=== PATIENT | female | born 1945 | race Caucasian/White ===

== ENCOUNTER 2024-10-20 10:28 | Outpatient (REF) | payer MEDICARE, BC, SELFPAY ==
[2024-10-20 18:50] LABS: MANUAL DIFF FLAG NO
[2024-10-20 19:07] LABS: Basophils Absolute Auto 0.1 X10*3/uL (0.0-0.2); Basophils Percent Auto 0.7 % (0-2); Eosinophils Absolute Auto 0.1 X10*3/uL (0.0-0.4); Eosinophils Percent Auto 1.2 % (0-4); Hematocrit 40.5 % (37.0-47.0); Hemoglobin 13.1 g/dl (12.0-16.0); Imm Gran Abs Auto 0.03 X10*3/uL (0.00-0.03); Imm Gran Pct Auto 0.3 % (0.0-0.4); Lymphocytes Absolute Auto 1.9 X10*3/uL (1.2-4.9); Lymphocytes Percent Auto 19.6 % (20-40); Mean Corpuscular HGB Conc 32.3 g/dl (31.0-35.0); Mean Corpuscular Hemoglobin 29.9 pg (27.0-33.0); Mean Corpuscular Volume 92.5 fL (80.0-98.0); Mean Platelet Volume 10.7 fL (9.4-12.3); Monocytes Absolute Auto 0.6 X10*3/uL (0.1-1.2); Monocytes Percent Auto 6.6 % (2-11); Neutrophils Absolute Auto 6.8 x10*3/uL (2.0-8.3); Neutrophils Percent Auto 71.6 % (45-73); Platelet Count 209 X10*3/uL (160-400); Red Blood Count 4.38 X10*6/uL (4.20-5.50); Red Cell Distribution Width 13.3 % (11.0-16.0); White Blood Count 9.5 X10*3/uL (4.8-10.8)
[2024-10-20 19:18] LABS: Alanine Aminotransferase 13 U/L (0-31); Aspartate Amino Transferase 19 U/L (5-31); C Reactive Protein 0.74 mg/dL (< or = 0.50); Estimated Glomerular Filt Rate > 60
[2024-10-20 19:59] LABS: Erythrocyte Sedimentation Rate 23 MM/HR (0-20)
== END 2024-10-20 10:29 | disposition home or self-care (01) ==
LOC: HO.HKASLDS 10:28
PROVIDERS: Visit Provider Internal Medicine Rheumatology
DX: M79.641 Pain in right hand (principal); M79.642 Pain in left hand; M25.50 Pain in unspecified joint; Z79.899 Other long term (current) drug therapy; R29.898 Other symptoms and signs involving the musculoskeletal system; Z86.16 Personal history of COVID-19; Z86.19 Personal history of other infectious and parasitic diseases
CPT/HCPCS: 36415; 82565; 84450; 84460; 85025; 85652; 86140; 99202

== ENCOUNTER 2024-10-20 10:28 | Outpatient (AMB) | payer MEDICARE, BC, SELFPAY ==
--- NOTE | 2024-10-20 10:32 | MHC.OFFVIS ---
Vital Signs 10/20/24 10:33 Height 5 ft 2.76 in Weight 142 lb 13.753 oz BMI 25.5 BP 150/80 H Blood Pressure Location Rt brachial Position Sitting Pulse 68 Pulse Source Pulse Oximeter Pulse Oximetry (%) 96 Oxygen Delivery Method Room Air Intake Visit Reasons: Arthritis/SELF REF OK per MD Intake Note: Pt presents today with arthritis. Allergies doxycycline Allergy (Intermediate, Verified 10/20/24 10:39) Stomach Upset Sulfa (Sulfonamide Antibiotics) Allergy (Intermediate, Verified 10/20/24 10:39) Hives duloxetine Allergy (Mild, Verified 10/20/24 10:39) Stomach Upset codiene Allergy (Intermediate, Uncoded 10/20/24 10:39) Hallucinations HPI HPI Arthritis/SELF REF OK per MD: Details: She had covid-19 04/2024 presented with vomiting and increase myalgias and arthralgias. Then she was dx with lyme 06/2024 with positive IgM and IgG. She only had doxyclycline 07/02/07/10 d/c due to vomiting. She was then started on amoxicillin until 07/19/2024. Seasonal every winter she has increase joint pain all over, especially in hands. She uses tylenol PRN. She has not use Tylenol in 2 weeks. She has increase pain everywhere at night more then during the day. She denies having difficulty getting about of bed. Denies having difficulty getting up from seated position. She denies fevers, Raynaud's phenomena, dyspnea, chest pain, pleurisy, oral ulcers, urinary symptoms, headaches, jaw pain, vision loss. After COVID-19 her joint pain has worsened. MS few hours. Fingers are swollen. She has a new nodule on right 3rd PIP She has had seasonal joint pain for 25 years. She did not have joint pain when she was living in [place]. Trigger finger 3rd surgery 08/04/2024 Dr. Raman. Bilateral shoulder cuff tears. Right meniscus tear repair and right knee hyalaronic acid 6 years ago. Hysterectomy age 32 due to fibroids and possible prolapsed uterus. Hx HLD, hypothyroidsm, HTN and lichen sclerosis. Mother had rheumatoid arthritis. Occasional glass of wine. Non smoker and no recreational drug use. 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 [employer] Medical History (Updated 10/20/24 @ 12:55 by Obdulio Mott MD) Trigger finger of right hand Review of Systems Const All systems reviewed & are unremarkable except as noted in HPI and below Physical Exam Vital Signs: Last Vital Signs Pulse 68 10/20/24 10:33 BP 150/80 H 10/20/24 10:33 Pulse Ox 96 10/20/24 10:33 Oxygen Delivery Method Room Air 10/20/24 10:33 BMI result Body Mass Index 25.5 Const Other: General: Comfortable CVS: RRR Respiratory: clear to auscultation bilaterally. Good respiratory effort Skin: No lesions seen MSK: Tender right 3rd PIP with ulnar nodule present. She has no synovitis of any joint. 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 Normal range of motion of upper extremities. Normal range of motion of lower extremities. 5/5 power upper extremities. Left leg hip flexor 3/5 power. Rest of lower extremity is 5/5 power. She is able to get out of seated position to standing position without using arms on armrest. Assessment & Plan Assessment & Plan (1) Bilateral hand pain: Comment: Due to clinical osteoarthritis. She has had history of left 3rd trigger finger with complications from surgery, which occurred 08/04/2024. She will be following up with hand surgeon for possible revision of trigger finger release. We discussed natural course and management of osteoarthritis. Code(s): M79.641 - Pain in right hand; M79.642 - Pain in left hand Category: Medical Plan: Bilateral hand x-rays ordered Try diclofenac gel 1% applied to affected area every 4-6 hours as needed Take Tylenol 500 mg 1-2 tablets q.h.s. Baseline labs ordered Return to clinic in 1-2 months (2) Multiple joint pain: Comment: Chronic joint pain for at least 25 years described as seasonal exacerbated with cold weather and after COVID-19 04/2024. She continues to have generalized joint pain worse at night and in her hands. She does not have synovitis to suggest inflammatory arthritis or symptoms/exam findings to suggest PMR or any other connective tissue disease. She has clinical osteoarthritis. Incidentally she has left leg weakness on exam of unclear etiology. I recommend conservative management with physical therapy to improve left leg weakness and upper extremity strengthening. Code(s): M25.50 - Pain in unspecified joint Category: Medical Plan: PT ordered. Patient prefers to go to physical therapy near her home. She will take Tylenol 500 mg 1-2 tablets q.h.s. Baseline labs ordered Return to clinic in 1-2 months (3) Post-COVID chronic joint pain: Code(s): M25.50 - Pain in unspecified joint; U09.9 - Post COVID-19 condition, unspecified; G89.29 - Other chronic pain Category: Medical Plan: See above (4) Left leg weakness: Code(s): R29.898 - Other symptoms and signs involving the musculoskeletal system Category: Medical Plan: See above Orders: Orders XR hand RT min 3V Today M79.641 - Pain in right hand, M79.642 - Pain in left hand Alanine Aminotransferase Today M79.641 - Pain in right hand, M79.642 - Pain in left hand Creatinine Today M79.641 - Pain in right hand, M79.642 - Pain in left hand Complete Blood Count Auto Diff Today M25.50 - Pain in unspecified joint Erythrocyte Sedimentation Rate Today Z79.899 - 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 PT Evaluation and Treatment Today G89.29 - Other chronic pain, M25.50 - Pain in unspecified joint, R29.898 - Other symptoms and signs involving the musculoskeletal system, U09.9 - Post COVID-19 condition, unspecified XR hand LT min 3V Today M79.641 - Pain in right hand, M79.642 - Pain in left hand Aspartate Amino Transferase Today M79.641 - Pain in right hand, M79.642 - Pain in left hand C Reactive Protein Today M25.50 - Pain in unspecified joint Coding Level of Care Code New Pt Level 4 (69039) Complex EM visit Add On G2211 Diagnoses Bilateral hand pain M79.641; M79.642 Multiple joint pain M25.50 Post-COVID chronic joint pain M25.50; U09.9; G89.29 Left leg weakness R29.898
[2024-10-20 10:33] VITALS: BP 150/80; PULSE 68; O2SAT 96; BMI 25.5
--- OUTSIDE RECORDS SUMMARY | 2024-10-20 12:13 | XMS_ITS | Clinical Summary ---
Author Organization [facility] it Address [address] [place] [address] Care Team Providers Care Card Tender Name Role Phone Jayshree Randhawa MD Primary Care Provider Medications Premarin vaginal cream PLACE 0.5G VAGINALLY 3 TIMES A WEEK. APPLY A PEA SIZED AMOUNT TO THE VAGINAL OPENING WITH YOUR FINGER SATURDAY, SATURDAY, AND SATURDAY 30 g 1 Active Surgical History Surgery Date Site/Laterality Comments SHOULDER SURGERY Bilateral PROCEDURE: HISTORICAL SHOULDER SURGERY KNEE SURGERY Right PROCEDURE: HISTORICAL KNEE SURGERY Medical History Medical History Date Comments Hypothyroidism DX:Hypothyroidis m Essential (primary) hypertension DX:Essential (primary) hypertension Mixed hyperlipidemia DX:Mixed hy perlipidemia Rosacea DX:Rosacea Family History Medical History Relation Name Comments Breast cancer Neg Hx Colon cancer Neg Hx Ovarian cancer Neg Hx Pancreatic cancer Neg Hx Prostate cancer Neg Hx Uterine cancer Neg Hx Social History Tobacco Use Types Packs/Day Years Used Date Smoking Tobacco: Never Smokeless Tobacco: Never Alcohol Use Standard Drinks/Week Comments Not Asked 0 (1 standard drink = 0.6 oz pur e alcohol) Comments Unknown Sex and Gender Information Value Date Recorded Sex Assigned at Not on file Legal Sex Female 11:40 AM EDT Gender Identity Not on file Sexual Orientation Not on file Obstetrics History Last Filed Vital Signs Vital Sign Reading Time Taken Comments Blood Pressure 130/80 05/19/2024 9:47 AM EDT Pulse 65 05/19/2024 9:47 AM EDT Temperature - - Respiratory Rate - - Oxygen Saturation - - Inhaled Oxygen Concentration - - Weight 63.5 kg (140 lb) 05/19/2024 9:47 AM EDT Height 152.4 cm (5') 2024 9:26 AM EDT Body Mass Index 27.34 2024 9:26 AM EDT Plan of Treatment Upcoming Encounters Date Type Department Care Team (Late st Contact Info) Description 10/26/2024 1:15 PM EDT Office Visit Obstetrics and Gynecology - [address] [phone] Mary Adames MD [address] [place], [place] Health Maintenance Due Date Last Done Comments DTaP,Tdap,and Td Vaccines (1 - Tdap) 1966 Pneumococcal Vaccine: 50+ Ye ars (1 of 1 - PCV) 1997 Zoster Vaccines (1 of 2) 1997 RSV Immunization Patients 60 + Years Old (1 - 1-dose 75+ series) 2022 COVID-19 Vaccine ( - 2023-2 5 season) 2024 Influenza Vaccine (#1) 2024 Depression Screening 05/19/2024 Falls Risk Assessment 05/19/2024 Hepatitis C Screening 05/19/2024 Medicare Annual Wellness Visit 05/19/2024 Osteoporosis Screening (Bone Density Screening) 05/19/2024 Social Influencers of Health Screening 05/19/2024 HIB Vaccines Aged Out No longer eligi ble based on patient's age to complete this topic HPV Vaccines Aged Out No longer eligi ble based on patient's age to complete this topic Hepatitis A Vaccines Aged Out No long er eligible based on patient's age to complete this topic Hepatitis B Vaccines Aged Out No long er eligible based on patient's age to complete this topic IPV Vaccines Aged Out No longer eligi ble based on patient's age to complete this topic MMR Vaccines Aged Out No longer eligi ble based on patient's age to complete this topic Meningococcal ACWY Vaccine Aged Out N o longer eligible based on patient's age to complete this topic Meningococcal B Vacine Aged Out No lo nger eligible based on patient's age to complete this topic RSV Immunization Patients Un christiano 20 months Aged Out No longer eligible b ased on patient's age to complete this topic Varicella Vaccines Aged Out No longer eligible based on patient's age to complete this topic Insurance MEDICARE [facility] Care Teams Card Tender Relationship Specialty Start Date End Date Jayshree Randhawa MD [address] [place] [address] PCP - General 01/14/24
--- OUTSIDE RECORDS SUMMARY | 2024-10-20 12:13 | XMS_ITS | Data Portability ---
Author Organization [place] - [facility], [facility] Address [address] [place] [address] Care Team Providers Care Painter Maintenance Name Role Phone CHAD CARROLL Primary Care Provider [phone] Assessment Encounter Date Assessment Date Assessment LastModified by Organization Details LastModified Time 07/09/2024 07/09/2024 I am seeing the patient today under the supervision of Dr. astorga Who was available but who did not see the patient. HPI: Patient presents today rmf locking and catching. The past couple weeks she been having increasing locking catching of the rmf . Tenderness over her A1 bhargavi minimal swelling. Worse at night. No numbness and tingling. Past family, medical, social history and review of systems has been reviewed, updated and is located in the patient? s chart. Examination:r Hand exam: no warmth, effusion, erythema, ecchymosis, full ROM of the digits, good FDS/FDPS function, triggering of the rmf , good cap refill, tender over the A1 bhargavi, digits are neurovascularly intact, 5/5 block sawyer strength. X-rays reviewed at [facility] Impression:rmf trigger Plan:Patient was to proceed with surgical management at this point given her failure of conservative management will be booked with Dr. Lamine oritz for right hand trigger finger release of the right middle finger.I discussed the risks benefits and possible complications of the surgical procedure with the patient. The patient agrees and understands. Patient will follow-up per the surgeon's postoperative protocol which we discussed. All questions were answered regarding the procedure Nothing to eat or drink past midnight. They will contact us with any questions or concerns prior to surgery. Patient is happy with outcome today. [employer] speech recognition oracle soa architect software was used to create portions of this document. An attempt at proofreading has been made to minimize errors. Please call for corrections. [email or web address] Not available 07/09/2024 12:00:20 Plan of Treatment Reminders Order Date Submit Date Provider Last Modified By Organization Details Last Modified Time Details Appointments RECHECK 15 2024 01:30P Liliana Raman MD Not available Not available Not available Lab None recorded. Referral occupatio nal therapist referral - Diagnosis :FLEXOR TENOSYNOV ECTOMY RIGHT MIDDLE FINGER SX 08/04/24C ustom molded orthosis: noneTreat ment: CONTINUE CURRENT CARE OT 2024 025 [email or web address] Not available 09/14/2024 11:47:15 Procedures None recorded. Surgeries None recorded. Imaging None recorded. Medication Orders None recorded. Patient TargetsNo targets recorded. Patient InstructionsNo instructions recorded. Reason for Referral Occupational Therapist Refer ral for Surgical follow-up Diagnosis:FLEXOR TENOSYNOVECTOMY RIGHT MIDDLE FINGER SX 08/04/24Custom molded orthosis: noneTreatment: CONTINUE CURRENT CARE OT Referring Physician: Naun Raman, Orthopedic Surgery, Encounter Date: 09/11/2024 Problems Name Problem SNOMED Code Status Onset Date Resolution Date Notes Provider Name and Address Organization Details Recorded Time No complaint s 116049138 Active Status: 'I'; Not Available [facility] 4 09:16:49 Pain in right hand 405929764336 109 Active 2023 Jordi Gonzales PA-C [address] [place] [address] [address], [place], [address] , [facility] 4 12:56:06 Pain of right knee joint 155243636297 100 Active 2016 Problem Code: M25.561; Problem Code Type: ICD-10; Status: 'A'; Not Available [facility] 4 11:27:35 Full thickness rotator cuff tear 476439754 Active 2015 Problem Code: M75.121; Problem Code Type: ICD-10; Status: 'A'; Not Available [facility] 4 11:27:35 Impingeme nt syndrome of left shoulder region 671849648833 104 Active 2018 Problem Code: M75.42; Problem Code Type: ICD-10; Status: 'A'; Not Available [facility] 4 11:27:35 Impingeme nt syndrome of right shoulder region 021884867210 102 Active 2018 Problem Code: M75.41; Problem Code Type: ICD-10; Status: 'A'; Not Available [facility] 4 11:27:35 Degenerat ion of cervical intervert ebral disc 81538236 Active 2018 Problem Code: M50.322; Problem Code Type: ICD-10; Status: 'A'; Not Available [facility] 4 11:27:35 Instabili ty of right shoulder joint 188994505 Active 2018 Problem Code: M25.311; Problem Code Type: ICD-10; Status: 'A'; Not Available [facility] 4 11:27:35 Idiopathi c osteoarth ritis 408276898 Active 2018 Problem Code: M19.011; Problem Code Type: ICD-10; Status: 'A'; Not Available [facility] 4 11:27:36 Derangeme nt of medial meniscus of right knee 771241772467 106 Active 2017 Problem Code: M23.231; Problem Code Type: ICD-10; Status: 'A'; Not Available [facility] 4 11:27:36 Trigger finger of right hand 077434855846 54883 Active 2023 Solis Paniagua PA-C [email or web address], [place], [address] , [facility] 4 07:52:12 Problem Notes None recorded. Procedures Surgical History Date Name Laterality Status Provider Name and Address Organization Details Recorded Time 4 JZTrigger Finger Injection completed Solis Paniagua PA-C [email or web address], [place], [address], [facility] 11/13/2023 07:52:04 Imaging Results None recorded. Procedure Notes None recorded. Medical Equipment None Reported. Allergies Allergen ID Allergen Name Allergen Category Reaction Reaction Severity Criticality Documentation Date Start Date Code Code System Note Provider Name and Address Organization Details Recorded Time 92422 Substance with sulfonami de structure and antibacte rial mechanism of action (substanc e) medicatio n Not available Not available Not available 10/07/20232015 64410 8003 SNOMED Aller gyRea ction : 'Skin React ion, Nause a/Vom iting /Diar romel' ; Not Available [facility] 4 11:53:42 51593 codeine medicatio n hallucina tions Not available Not available 10/07/20232015 2670 RxNorm Aller gyNam e: 'Code ine and Relat ed'; Not Available [facility] 11:53:43 Medications Name Sig Start Date Stop Date Status Note LastModified by Organization Details LastModified Time amoxicillin 500 mg capsule TAKE 1 CAPSULE BY MOUTH THREE TIMES DAILY FOR 7 DAYS active Not Available Not Available No t Available fluconazole 150 mg tablet TAKE 1 TABLET BY MOUTH TODAY. REPEAT IN 3 DAYS IF SYMPTOMS PERSIST active Not Available Not Available No t Available sucralfate 1 gram tablet TAKE 1 TABLET BY MOUTH THREE TIMES DAILY BEFORE MEALS AND AT BEDTIME active Not Available Not Available No t Available ondansetron HCl 4 mg tablet TAKE 1 TABLET BY MOUTH EVERY 8 HOURS NEEDED FOR FOR NAUSEA AND VOMITING active Not Available Not Available No t Available famotidine 20 mg tablet TAKE 1 TABLET BY MOUTH TWICE DAILY X 2 WEEKS. COMPLETE HOURS-PYL MO TEST ONCE DONE WITH THIS COURSE OF TREATMENT . active Not Available Not Available No t Available simvastatin 5 mg tablet TAKE 1 TABLET AT BEDTIME active Not Available Not Available No t Available pantoprazol e 40 mg tablet,hudson yed release TAKE 1 TABLET BY MOUTH DAILY. DO NOT START UNTIL HOURS-PYL MO TEST IS COMPLETED active Not Available Not Available No t Available tacrolimus 0.1 % topical ointment active Not Available Not Available Not Available neomycin-po lymyxin-dex ameth 3.5 mg/mL-10,00 0 unit/mL-0.1 % eye drops INSTILL 1 DROP INTO RIGHT EYE THREE TIMES DAILY FOR 7-10 DAYS 07/09 completed Not Available Not Available Not Available Synthroid 50 mcg tablet TAKE 1 TABLET DAILY active Not Available Not Available No t Available mometasone 0.1 % topical ointment APPLY THIN LAYER TOPICALLY TO THE AFFECTED AREA EVERY NIGHT 07/09 completed Not Available Not Available Not Available clobetasol 0.05 % topical ointment active Not Available Not Available Not Available ondansetron 4 mg disintegrat ing tablet DISSOLVE 1 TABLET ON THE TONGUE EVERY 8 HOURS NEEDED FOR NAUSEA OR VOMITING active Not Available Not Available No t Available losartan 100 mg tablet TAKE 1 TABLET DAILY active Not Available Not Available No t Available doxycycline hyclate 100 mg tablet TAKE 1 TABLET BY MOUTH TWICE DAILY FOR 10 DAYS active Not Available Not Available No t Available bacitracin- polymyxin B 500 unit-10,000 unit/gram eye ointment APPLY TO RIGHT LOWER EYELID MARGIN THREE TIMES DAILY active Not Available Not Available No t Available oxycodone 5 mg tablet TAKE 1 TABLET BY MOUTH EVERY 4 HOURS DIRECTED active Not Available Not Available No t Available Premarin 0.625 mg/gram vaginal cream PLACE 0.5G VAGINALLY 3 TIMES A WEEK. APPLY A PEA SIZED AMOUNT TO THE VAGINAL OPENING WITH YOUR FINGER SATURDAY, SATURDAY , AND SATURDAY active Not Available Not Available No t Available nitrofurant oin monohydrate /macrocryst als 100 mg capsule TAKE 1 CAPSULE BY MOUTH TWICE DAILY FOR 7 DAYS active Not Available Not Available No t Available Gel-One R KNEE INJ ONCE 11/12 completed Statu s: 'Curr ent'; Not Available Not Available Not Available BinaxNOW COVID-19 Ag Self Test kit TEST DIRECTED TODAY active Not Available Not Available No t Available Paxlovid 300 mg (150 mg x 2)-100 mg tablets in a dose pack TK 2 NIRMATREL VIR TS AND 1 RITONAVIR T TOGETHER PO TWICE DAILY FOR 5 DAYS. TAKE WITH OR WITHOUT FOOD. active Not Available Not Available No t Available Vitals Date Recorded Body height Body mass index (BMI) Body weight Provider Name and Address Organization Details Last Updated DateTime 07/09/2024 152.4 cm 27.1 kg/m2 61669.34 g John Adler [facility] 07/09/2024 10:44:58 Date Recorded Body height Body mass index (BMI) Body weight Provider Name and Address Organization Details Last Updated DateTime 09/11/2024 152.4 cm 27.1 kg/m2 10379.34 g KANG GUTHRIE [facility] 09/11/2024 13:35:01 Date Recorded Body height Body mass index (BMI) Body weight Provider Name and Address Organization Details Last Updated DateTime 10/14/2024 152.4 cm 27.1 kg/m2 85682.34 g KANG GUTHRIE [place] [facility] 10/14/2024 14:22:04 Social History None recorded. Functional Status None recorded. Mental Status None recorded. Family History Nothing Reported. Medical History Condition Response Allergies/Hayfever N Coronary Artery Disease N Anxiety/Depression N Breathing or lung disorders N Emphysema N Nerve Disorders N Thyroid Problems Y COPD N Pacemaker N Anemia N Kidney/Bladder Problems N Vascular Disease N Heart Trouble N Heart Attack ([place]) N Gastrointestinal Disease N Cholesterol Y Diabetes N Autoimmune disease N Bleeding Disorder N Inflammatory Joint disease N Orthotics N Arthritis N Seizures/Epilepsy N Blood Clot N AIDS/HIV N Congestive Heart Failure (CHF) N Acid Reflux (GERD) N Cancer N Stroke N Asthma N Circulation Problems N Peripheral Vascular Disease N Sleep Apnea N Hepatitis N Heart Disease N Rheumatoid Arthritis N Arrhythmia N Pulmonary Embolism N Headaches N Fibromyalgia N Hypertension Y Osteoporosis N Gynecological HistoryNo gynecological history recorded. Obstetrics History GPAL:G 0 P 0 0 0 0 Past Encounters Encounter ID Performer Location Encounter Start Date Encounter Closed Date Diagnosis/Indication Diagnosis SNOMED-CT Code Diagnosis ICD10 Code Diagnosis Note [id number] Solis Paniagua [place] [address] 11/13/2023 07:35:53 11/13/2023 07:57:56 Trigger finger of right hand [id number] 3201236 M65.30 [id number] JORGE Yang [address] [place] [address] 07/09/2024 10:27:59 08/06/2024 09:20:15 Trigger finger of right hand 8418894121 5931146 M65.30 [id number] MD ROCK Burnett [address] [place] [address] 08/11/2024 15:12:04 08/11/2024 15:34:19 Postoperative visit [id number] Z48.89 [id number] Maryan Wallace OTR/L,CHT [place] Man [address] [place] [address] 08/17/2024 14:21:44 08/19/2024 11:46:38 Triggering of digit 200923401 M65.331 This visit was completed today under the supervisio n of Dr. Raman. The postoperat flo dressing is removed. The surgical wound is inspected and found to be clean and dry. The edges of the incision are approximat ed with intact sutures. Patient has intact neurovascu lar structures with only slight tenderness at the incision. No surroundin g erythema, wound drainage, warmth or signs of infection. The patient states no pain when palpating around the surgical site and the surroundin g structures . Postoperative visit [id number] Z48.89 Sutures are removed today without complicati on. Per the surgeon , since there are no wound care complicati ons or concerns . The patient was instructed to contact the office if there should arise any concerns with the surgical site or if there is not sufficient functional recovery. All questions, with regards to return to functional activities , are answered prior to leaving the office today. This office visit was complete at 15 minutes. [id number] MD ROCK Burnett [place] [place] [address] 09/11/2024 13:24:53 10/01/2024 10:30:33 Surgical follow-up [id number] Z48.89 Flexor ten osynovitis of finger 364726869 M65.826 [id number] MD ROCK Burnett [place] [place] [address] 10/14/2024 14:12:54 10/14/2024 16:53:20 Disorder of tendon 02474115 M67.80 Health Concerns Section Related Observation LastModified by Organization Detai ls LastModified Time None Recorded Concern Status LastModified by Organization Details LastModified Time None Recorded Advance Directives Directive None Recorded Payers Encounter Date Sequence Insurance Name Policy Number Policy Curiel Covered Member ID Curiel Member ID Guarantor Name 07/09/2024 1 [place] [facility] Berta Rowley [place] [id number] Berta Rowley [place]o 07/09/2024 2 [place] [employer] - [employer] Brian Conn [place] [id number] Berta L [place]o 08/11/2024 1 [place] [facility] Berta L [place]o [id number] Berta L [place]o 08/11/2024 2 [facility] Brian Conn [place] [id number] Berta L [place] 08/17/2024 1 [place] [facility] Berta L [place]o [id number] 3 Berta L [place]o 08/17/2024 2 [place] [employer] Brian Conn [place] [id number] Berta Rowley [place] 09/11/2024 1 [place] [facility] Berta L [place]o [id number] 3 Berta L [place]o 09/11/2024 2 [place] [employer] Brian Conn Ov[place]o [id number] Berta L [place] 10/14/2024 1 [place] [facility] Berta L [place]o [id number] Berta L [place]o 10/14/2024 2 [place]: [facility] - [facility] [employer] Brian Conn Ov[place]o [id number] Berta L [place] Notes Date Note Type Note Provider Name and Address Organization Details Recorded Time 08/17/2024 text/html This is a 79-yea r-old woman who required an extensive dissection of the right middle finger flexor tenosynovectomy procedure with Dr. Raman on 08/04/2024. She began a course of hand therapy at 1 week postop with Danuta bryson [facility]. She presents to the office today at 2 weeks postop for a suture removal. She will continue with her hand therapy protocol and meet with the surgeon at 6 weeks postop. Maryan Wallace, OTR/L,CHT [address] [facility] [address], [place], [address], [facility] 08/17/2024 14:47:07 09/11/2024 text/html Diagnosis: Statu s post flexor tenosynovectomy right middle finger with excision slip FDS tendon The patient presents at our request. She reports improvement but very slow going in occupational therapy. Past family, medical, social history and review of systems has been reviewed, updated and is located in the patient? s chart. Examination: Healthy appearing patient in no apparent distress. Alert and oriented. She has limited active IP motion of the right middle finger without blocking of the joints. No atrophy in either upper extremity. Brisk capillary refill in all digits Plan: The patient and I discussed her situation at length. She will continue to work aggressively in therapy to maximize her middle finger flexion. She will follow-up with me in 6 weeks. Naun Raman MD [address], [place], [address], [facility] 09/11/2024 14:09:48 10/14/2024 text/html Diagnosis: Statu s post removal of 1 slip FDS tendon right middle finger The patient returns at our request. She has seen no improvement in her finger motion. Past family, medical, social history and review of systems has been reviewed, updated and is located in the patient? s chart. Examination: Healthy appearing patient in no apparent distress. Alert and oriented. She continues to demonstrate flexion at the PIP joint but no DIP motion without blocking. No atrophy in either upper extremity. Brisk capillary refill in all digits Plan: The patient and I discussed her situation at length. I am disappointed by her results. We discussed surgical intervention which would involve a Louise lysis of her flexor tendons and very likely removal of the other slip of the FDS tendon to enhance FDP function. We agreed that we would discuss this further in 3 months with the hopes that she will see some improvements without surgery. She will follow-up with me as recommended. Naun Raman MD [address], [place], [address], [facility] 10/14/2024 16:53:18 OBGyn Episode No OBEpisode recorded.
--- OUTSIDE RECORDS SUMMARY | 2024-10-20 12:14 | XMS_ITS | Continuity of Care Document ---
Author Organization [facility] Address [address] [place] [address]- Care Team Providers Care Manager Of Data Name Role Phone Edis MOISE, Jayshree Ford Primary Care Physician [phone] [id number] Date(s): 08/28/24 - 09/27/24 [facility] [address] [place] [id number]- Encounter Type: Triage Allergies, Adverse Reactions, Alerts Substance Criticality Severity Reaction Reaction Severity Status codeine hallucinations Activ e sulfa drugs hives Active Immunizations Given and Recorded Vaccine Date Status Refusal Reason SARS-CoV-2(COVID-19)mRNA-LNP vac([id number]) 05/06/23 Recorded RSV vaccine, preF A-preF B, recombinant 04/26/23 R ecorded influenza virus vaccine, inactivated 04/26/23 [place] rded influenza virus vaccine, inactivated 04/20/22 Israel rded influenza virus vaccine, inactivated 04/12/21 [place] rded influenza virus vaccine, inactivated 04/08/19 [place] rded influenza virus vaccine, inactivated 04/02/18 [place] rded influenza virus vaccine, inactivated 04/01/17 [place] rded influenza virus vaccine, inactivated 04/11/16 [place] rded [id number] 12y+ bivalent booster vax 07/25/22 Recorded tetanus/diphtheria/pertussis, acel(Tdap) 03/02/22 Given SARS-CoV-2 mRNA ([id number]) vax 11/03/21 Recorded SARS-CoV-2 (COVID-19) mRNA BNT-162b2 vac 06/01/21 Recorded SARS-CoV-2 (COVID-19) mRNA BNT-162b2 vac 11/15/20 Recorded SARS-CoV-2 (COVID-19) mRNA BNT-162b2 vac 10/25/20 Recorded Influenza Virus Vaccine (oldterm) 04/22/20 Recorde d Influenza Virus Vaccine (oldterm) 04/15/15 Recorde d zoster vaccine, inactivated 07/02/18 Recorded zoster vaccine, inactivated 04/02/18 Recorded zoster vaccine, inactivated 08/23/08 Recorded zoster vaccine, inactivated 08/23/08 Recorded pneumococcal 13-valent vaccine 03/09/15 Recorded pneumococcal 23-valent vaccine 08/13/12 Recorded diphtheria/tetanus/pertussis, acel(DTaP) 02/12/12 Recorded influ virus vac, H1N1, inactive(oldterm) 08/22/09 Recorded Medications Calcium Citrate Tablet 630MG 4OOMG OF VIT D, By Mouth, 2 times a day, Soft Stop, 02/09/09 11:09:25 AM EDT Start Date: 02/09/09 Stop Date: 03/11/09 Status: Ordered Repeat number: 1 centrum silver multivitamin centrum silver multivitamin, By Mouth, Refills 0, Maintenance, 05/16/20 3:23:00 PM EDT, Supply Start Date: 05/16/20 Status: Ordered Repeat number: 1 clobetasol 0.05% topical ointment See Instructions, 1 application Topically 2-4 times per week apply a thin film, # 60 Gm, 1 Refills,Acute 02/28/25 11:22:00 AM EDT, 02/27/23 11:22:00 AM EDT, Ointment, [facility], Partial fill upon patient request if the prescription is for a schedule II opioid drug., 1 application Topically 2-4 times per week; apply a thin film, 152, cm, 12/20/22 8:12:00 EDT, Height Start Date: 02/27/23 Stop Date: 02/28/25 Status: Ordered Quantity: 60.0 Unit: g Repeat number: 2 Cranberry 1 TAB, By Mouth, Daily in PM, 0 Refills, 02/09/09 11:07:38 AM EDT Start Date: 02/09/09 Status: Ordered Repeat number: 1 famotidine 20 mg oral tablet 20 mg, 1, tablet, By Mouth, 2 times a day, Complete H pylori test once done with course of famotidine, # 28 tablet, Refills 0, Tot. Refills 0, Maintenance, 08/11/24 2:16:00 PM EST, Route to Pharmacy Electronically, [facility] #[id number], Partial fill upon patient request if the prescription is for a schedule II opioid drug., 154, cm, 08/11/24 13:56:00 EST, Height, 64, kg, 04/21/24 13:09:00 EDT, Dry Weight Start Date: 08/11/24 Stop Date: 08/25/24 Status: Ordered Quantity: 28.0 Unit: tablet Repeat number: 1 Indication: Gastritis, unspecified, without bleeding Glucosamine Chondroitin By Mouth, Daily, 0 Refills, Maintenance, 05/16/20 3:22:00 PM EDT Start Date: 05/16/20 Status: Ordered Repeat number: 1 losartan 100 mg oral tablet 1 tablet, By Mouth, Daily, # 90 tablet, 3 Refills, Maintenance, 12/24/23 10:18:00 AM EDT, [facility], 152, cm, 12/24/23 9:50:00 EDT, Height Start Date: 12/24/23 Status: Ordered Quantity: 90.0 Unit: tablet Repeat number: 4 Metronidazole Maintenance, 12/24/23 9:58:00 AM EDT Start Date: 12/24/23 Status: Ordered Repeat number: 1 ondansetron 4 mg oral tablet, disintegrating 1 tablet = 4 mg, By Mouth, Every 8 hours, PRN as needed for nausea/vomiting, # 10 tablet, 0 Refills, Maintenance, 04/21/24 4:18:00 PM EDT, DIS Tablet, [facility] #[id number], Partial fill upon patient request if the prescription is for a schedule II opioid drug., 154, cm, 04/21/24 13:09:00 EDT,Height, 64, kg, 04/21/24 13:09:00 EDT, Dry Weight Start Date: 04/21/24 Status: Ordered Quantity: 10.0 Unit: tablet Repeat number: 1 pantoprazole 40 mg oral delayed release tablet 1 tablet = 40 mg, By Mouth, Daily, Do not start unil h pylori test is completed, # 30 tablet, 6 Refills, Maintenance, 08/11/24 2:16:00 PM EST, EC Tablet, 154, cm, 08/11/24 13:56:00 EST, Height, 64, kg,04/21/24 13:09:00 EDT, Dry Weight Start Date: 08/11/24 Status: Ordered Quantity: 30.0 Unit: tablet Repeat number: 7 Premarin Vaginal 0.625 mg/gm cream with applicator See Instructions, Use 0.5-1 gram 2-3 times per week, # 30 Gm, 4 Refills, Maintenance, 02/27/23 11:21:00 AM EDT, [facility], 72, Use 0.5-1 gram 2-3 times per week, 152, cm, 12/20/22 8:12:00 EDT, Height Start Date: 02/27/23 Status: Ordered Quantity: 30.0 Unit: g Repeat number: 5 simvastatin 5 mg oral tablet 1 tablet, By Mouth, Daily at bedtime, # 90 tablet, 3 Refills, 12/24/23 10:18:00 AM EDT, [facility], 152, cm, 12/24/23 9:50:00 EDT, Height Start Date: 12/24/23 Status: Ordered Quantity: 90.0 Unit: tablet Repeat number: 4 sucralfate 1 gm oral tablet See Instructions, TAKE 1 TABLET BY MOUTH THREE TIMES DAILY BEFORE MEALS AND AT BEDTIME, # 120 tablet, Refills 0, Maintenance, 05/21/24 4:10:00 PM EDT, Instructions Replace Required Details, Route to Pharmacy Electronically, [facility] #[id number], 154, cm, 04/22/24 16:17:00 EDT, Height, 64, kg, 04/21/24 13:09:00 EDT, Dry Weight Start Date: 05/21/24 Status: Ordered Quantity: 120.0 Unit: tablet Repeat number: 1 super b complex super b complex, By Mouth, Refills 0, Maintenance, 05/16/20 3:22:00 PM EDT, Supply Start Date: 05/16/20 Status: Ordered Repeat number: 1 Synthroid 0.05 mg oral tablet 1 tablet, By Mouth, Daily, # 90 tablet, 3 Refills, Maintenance, 12/24/23 10:18:00 AM EDT, [facility], 152, cm, 12/24/23 9:50:00 EDT, Height Start Date: 12/24/23 Status: Ordered Quantity: 90.0 Unit: tablet Repeat number: 4 tacrolimus 0.03% topical ointment Topically, 2 times a day, 0 Refills, Maintenance, 12/24/23 9:57:00 AM EDT, Partial fill upon patientrequest if the prescription is for a schedule II opioid drug. Start Date: 12/24/23 Status: Ordered Repeat number: 1 Problem List Condition Confirmation Course Effective Dates Status H ealth Status Informant Vaginal atrophy Confirmed Active Osteoarthritis of cervical spine Confirmed Active Excessive sweating Confirmed Active Gastritis Confirmed Active Esophageal reflux Confirmed Active Hemorrhoid Confirmed Active Hyperlipidemia Confirmed Active Hypertension Confirmed Active Hypothyroidism Confirmed Active Lichen sclerosus Confirmed Active Pulmonary nodule Confirmed Active Lt facial numbness Confirmed Active Osteopenia Confirmed Active Medicare annual wellness visit, subsequent Confirmed Active Spinal stenosis in cervical region Confirmed Active Social History Social History Type Response Smoking Status Never (less than 100 in lifetime) entered on: 03/27/19 Sex Sex Representation Female (finding) Patient Care team information Care Team Personnel Name: Jayshree Randhawa MD Position: [facility] Physician - Primary Care Member Role: PCP Address: [address] [place] [address] Telecom: Care Team Related Persons Name: DESMOND HOWELL Insurance Providers Guarantor name: TONY HOWELL Health Plan Information #: 1 Payer: MEDICARE PART B OUTPT Member Number: NA Policy Number: NA Group Number: NA Health Plan Information #: 2 Payer: [employer] Member Number: NA Policy Number: NA Group Number: NA
== END 2024-10-20 11:57 | disposition home or self-care (01) ==
LOC: HO.RHES 10:29
PROVIDERS: Visit Provider Internal Medicine Rheumatology
DX: M79.641 Pain in right hand (principal); M79.642 Pain in left hand; M25.50 Pain in unspecified joint; U09.9 Post COVID-19 condition, unspecified; G89.29 Other chronic pain; R29.898 Other symptoms and signs involving the musculoskeletal system
CPT/HCPCS: 99204; G2211

== ENCOUNTER 2024-12-24 13:58 | Outpatient (AMB) | payer MEDICARE, BC, SELFPAY ==
[2024-12-24 14:02] VITALS: BP 140/80; PULSE 79; O2SAT 97; BMI 25.3
--- NOTE | 2024-12-24 14:02 | A.OFFVIS_ITS ---
Vital Signs 12/24/24 14:02 Height 5 ft 2.76 in Weight 141 lb 12.116 oz BMI 25.3 BP 140/80 H Blood Pressure Location Lt brachial Position Sitting Pulse 79 Pulse Source Pulse Oximeter Pulse Oximetry (%) 97 Oxygen Delivery Method Room Air Intake Visit Reasons: follow up Intake Note: Pt presents today with arthritis. Accompanied by: Self / Same As Patient Allergies doxycycline Allergy (Intermediate, Verified 12/24/24 14:02) Stomach Upset Sulfa (Sulfonamide Antibiotics) Allergy (Intermediate, Verified 12/24/24 14:02) Hives duloxetine Allergy (Mild, Verified 12/24/24 14:02) Stomach Upset codiene Allergy (Intermediate, Uncoded 10/20/24 10:39) Hallucinations HPI HPI follow up: Details: Hand pain is worse with increase activity. She is not dropping things. Wakes up with hand pain. MS 1 hour. Takes 1 tylenol 500mg qhs. She completed PT today. It aggrevated left knee pain. She had gel 1 one in left knee 5 or 6 years ago. [facility]LY [facility], [facility] Medical History (Updated 12/24/24 @ 15:42 by Obdulio Mott MD) COVID Lyme disease Trigger finger of right hand Physical Exam Vital Signs: Last Vital Signs Pulse 79 12/24/24 14:02 BP 140/80 H 12/24/24 14:02 Pulse Ox 97 12/24/24 14:02 Oxygen Delivery Method Room Air 12/24/24 14:02 BMI result Body Mass Index 25.3 Const Other: General: Comfortable CVS: RRR Respiratory: clear to auscultation bilaterally. Good respiratory effort Skin: No lesions seen MSK: She has no synovitis of any joint. 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 Normal range of motion of upper extremities. Normal range of motion of lower extremities. Left leg hip flexor 4/5 power. Rest of lower extremity is 5/5 power. She is able to get out of seated position to standing position without using arms on armrest. Assessment & Plan Assessment & Plan (1) Osteoarthritis of hands, bilateral: Comment: Confirmed on x-ray. No clinical evidence of inflammatory arthritis, which was discussed with patient. We discussed diagnosis, natural course and conservative management of osteoarthritis. Answered patient's questions to her satisfaction. Code(s): M19.041 - Primary osteoarthritis, right hand; M19.042 - Primary osteoarthritis, left hand Category: Medical Qualifiers: Osteoarthritis type: primary Qualified Code(s): M19.041 - Primary osteoarthritis, right hand; M19.042 - Primary osteoarthritis, left hand Plan: She will take Tylenol 500 mg or 650 mg in the morning and 2 tablets in the evening before bedtime She will try diclofenac gel 1% applied to affected area every 4-6 hours as needed Occupational therapy ordered to improve range of motion of right 3rd DIPJ, paraffin wax bath trial, home exercise program Return to clinic in 6 months or sooner if needed (2) Left leg weakness: Comment: Improved with physical therapy Code(s): R29.898 - Other symptoms and signs involving the musculoskeletal system Category: Medical Plan: Continue home exercise program daily Return to clinic in 6 months or sooner if needed (3) Multiple joint pain: Comment: Chronic joint pain for at least 25 years described as seasonal exacerbated with cold weather and after COVID-19 04/2024. She continues to have generalized joint pain worse at night and in her hands. Osteoarthritis is contributing to hand pain. Laboratory workup revealed mild elevation in inflammatory markers, when adjusted for age and sex are within her upper limit of normal (43.5 mm/hr ESR and 2.1 mg/dL CRP). Her lower extremity left leg weakness improved with physical therapy Code(s): M25.50 - Pain in unspecified joint Category: Medical Plan: She will take Tylenol 500 mg or 650 mg in the morning and 2 tablets in the evening before bedtime Continue physical therapy home exercise program No further rheumatological workup is indicated at this time Return to clinic in 6 months or sooner if needed Orders: Orders OT Evaluation and Treatment Today M19.041 - Primary osteoarthritis, right hand, M19.042 - Primary osteoarthritis, left hand Coding Level of Care Code Est Pt Level 4 (53481) Complex EM visit Add On G2211 Diagnoses Primary osteoarthritis of both hands M19.041; M19.042 Osteoarthritis type: primary Left leg weakness R29.898 Multiple joint pain M25.50
== END 2024-12-24 14:43 | disposition home or self-care (01) ==
LOC: HO.RHES 13:58
PROVIDERS: Visit Provider Internal Medicine Rheumatology
DX: M19.041 Primary osteoarthritis, right hand (principal); M19.042 Primary osteoarthritis, left hand; R29.898 Other symptoms and signs involving the musculoskeletal system; M25.50 Pain in unspecified joint
CPT/HCPCS: 99214; G2211

== ENCOUNTER → 2024-12-24 13:58 | Outpatient (BNVA) | payer MEDICARE, BC, SELFPAY | PROVIDERS: Visit Provider Internal Medicine Rheumatology | DX: M19.041 Primary osteoarthritis, right hand (principal); M19.042 Primary osteoarthritis, left hand; M25.50 Pain in unspecified joint; R29.898 Other symptoms and signs involving the musculoskeletal system | CPT/HCPCS: 99212 ==

== ENCOUNTER 2025-06-24 10:24 | Outpatient (AMB) | payer MEDICARE, BC, SELFPAY ==
--- NOTE | 2025-06-24 10:27 | A.OFFVIS_ITS ---
Vital Signs 06/24/25 10:28 Height 5 ft 2 in Weight 141 lb 1.533 oz BMI 25.8 BP 130/90 H Blood Pressure Location Lt brachial Position Sitting Pulse 75 Pulse Source Pulse Oximeter Pulse Oximetry (%) 97 Oxygen Delivery Method Room Air Intake Visit Reasons: 6 months Intake Note: Pt presents today with arthritis. Accompanied by: Self / Same As Patient Allergies doxycycline Allergy (Intermediate, Verified 06/24/25 10:28) Stomach Upset Sulfa (Sulfonamide Antibiotics) Allergy (Intermediate, Verified 06/24/25 10:28) Hives duloxetine Allergy (Mild, Verified 06/24/25 10:28) Stomach Upset codiene Allergy (Intermediate, Uncoded 10/20/24 10:39) Hallucinations HPI HPI 6 months: Details: She is doing well. She completed occupational therapy she is having difficulty more recently opening jars. She is compliant with home exercise program. She is using paraffin wax bath. She continues to take Tylenol 1000 mg daily. [facility]LY [facility] Medical History COVID Lyme disease Trigger finger of right hand Physical Exam Vital Signs: Last Vital Signs Pulse 75 06/24/25 10:28 BP 130/90 H 06/24/25 10:28 Pulse Ox 97 06/24/25 10:28 Oxygen Delivery Method Room Air 06/24/25 10:28 BMI result Body Mass Index 25.8 Const Other: General: Comfortable CVS: RRR Respiratory: clear to auscultation bilaterally. Good respiratory effort Skin: No lesions seen MSK: She has no synovitis of any joint. 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 Assessment & Plan Assessment & Plan (1) Osteoarthritis of hands, bilateral: Comment: Improved with occupational therapy. 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 Code(s): M19.041 - Primary osteoarthritis, right hand; M19.042 - Primary osteoarthritis, left hand Category: Medical Qualifiers: Osteoarthritis type: primary Qualified Code(s): M19.041 - Primary osteoarthritis, right hand; M19.042 - Primary osteoarthritis, left hand Plan: She will reduce Tylenol to 500 mg daily then eventually discontinue if symptoms are tolerable She will try diclofenac gel 1% applied to affected area every 4-6 hours as needed Continue home exercise program learned from occupational therapy I have asked her to purchase handgrip strength thinners from [employer] with varying resistance Return to clinic as needed Coding Level of Care Code Est Pt Level 3 (07355) Complex EM visit Add On G2211 Diagnoses Primary osteoarthritis of both hands M19.041; M19.042 Osteoarthritis type: primary
[2025-06-24 10:28] VITALS: BP 130/90; PULSE 75; O2SAT 97; BMI 25.8
== END 2025-06-24 11:11 | disposition home or self-care (01) ==
LOC: HO.RHES 10:25
PROVIDERS: PCP Internal Medicine; Visit Provider Internal Medicine Rheumatology
DX: M19.041 Primary osteoarthritis, right hand (principal); M19.042 Primary osteoarthritis, left hand
CPT/HCPCS: 99213; G2211

== ENCOUNTER → 2025-06-24 10:24 | Outpatient (BNVA) | payer MEDICARE, BC, SELFPAY | PROVIDERS: PCP Internal Medicine; Visit Provider Internal Medicine Rheumatology | DX: M19.041 Primary osteoarthritis, right hand (principal); M19.042 Primary osteoarthritis, left hand | CPT/HCPCS: 99212 ==